=== PATIENT | female | born 1960 | race Caucasian/White ===

== ENCOUNTER → 2016-12-23 | Outpatient (CLI) | payer OTHER ==
[~2016-12-23] MED LIST: AMLODIPINE10 MG PO; ASPIRIN81 M1 PO; ATENOLOL25 MG PO; AUGMENTIN 875-875 MG PO; DUONEB 3 MG/3 ML3 M1 INH; FLONASE ALLERG9.9 ML NAS; GLIPIZIDE10 M2 PO; LISINOPRIL40 MG PO; LOVASTATIN10 MG PO; METOPROLOL TART50 M1 PO; MUCINEX1200 M1 PO; OXYBUTYNIN5 MG PO; PERCOCET 325 MG1 TA2 PO
== END | disposition home or self-care (01) ==
LOC: MAMMO 13:06
DX: Z12.31 Encounter for screening mammogram for malignant neoplasm of breast (principal)

== ENCOUNTER → 2017-06-18 | Outpatient (CLI) | payer OTHER | END | disposition home or self-care (01) | LOC: LAB 15:20 | DX: N20.0 Calculus of kidney (principal); E66.9 Obesity, unspecified ==

== ENCOUNTER 2018-09-23 22:48 | Emergency (ER) | payer OTHER | END 2018-09-23 23:46 | disposition home or self-care (01) | LOC: ED 22:48 | DX: L98.8 Other specified disorders of the skin and subcutaneous tissue (principal); Z88.8 Allergy status to other drugs, medicaments and biological substances; Z79.2 Long term (current) use of antibiotics; Z79.899 Other long term (current) drug therapy; Z79.82 Long term (current) use of aspirin; Z79.84 Long term (current) use of oral hypoglycemic drugs; Z87.442 Personal history of urinary calculi ==

== ENCOUNTER 2019-04-13 22:32 | Emergency (ER) | payer OTHER ==
[~2019-04-13] VITALS: Ht 162.5 cm; Wt 136.1 kg
== END 2019-04-14 00:43 | disposition home or self-care (01) ==
LOC: ED 22:32
DX: S90.31XA Contusion of right foot, initial encounter (principal); Z88.8 Allergy status to other drugs, medicaments and biological substances; Z79.2 Long term (current) use of antibiotics; Z79.899 Other long term (current) drug therapy; Z79.82 Long term (current) use of aspirin; Z87.442 Personal history of urinary calculi; X58.XXXA Exposure to other specified factors, initial encounter; Y93.01 Activity, walking, marching and hiking; Y92.098 Other place in other non-institutional residence as the place of occurrence of the external cause; Y99.8 Other external cause status

== ENCOUNTER 2019-05-07 18:51 | Emergency (ER) | payer OTHER ==
[~2019-05-07] VITALS: Ht 165.1 cm; Wt 136.1 kg
[2019-05-07] MEDS ORDERED: PREDNISONE20 M1 PO (19:37)
== END 2019-05-07 19:51 | disposition home or self-care (01) ==
LOC: ED 18:51
DX: L30.9 Dermatitis, unspecified (principal); E11.9 Type 2 diabetes mellitus without complications; Z88.8 Allergy status to other drugs, medicaments and biological substances; Z79.82 Long term (current) use of aspirin; Z79.899 Other long term (current) drug therapy; Z87.442 Personal history of urinary calculi

== ENCOUNTER → 2019-08-23 | Outpatient (CLI) | payer OTHER ==
[~2019-08-23] MED LIST changes: +PREDNISONE20 M1 PO
== END | disposition home or self-care (01) ==
LOC: MAMMO 11:02
DX: Z12.31 Encounter for screening mammogram for malignant neoplasm of breast (principal)

== ENCOUNTER 2019-09-10 23:28 | Emergency (ER) | payer OTHER ==
[~2019-09-10] VITALS: Ht 162.5 cm; Wt 142.9 kg
[2019-09-10 23:52] LABS: BILIRUBIN NEGATIVE (NEGATIVE); BLOOD 2+ (NEGATIVE); CLARITY CLOUDY (CLEAR); COLOR YELLOW (YELLOW); GLUCOSE NEGATIVE (NEGATIVE); KETONE TRACE (NEGATIVE); LEUKO ESTERASE TRACE (NEGATIVE); NITRITE POSITIVE (NEGATIVE); PH 5.5 (5.0-9.0); SPECIFIC GRAVITY >= 1.030 (1.005-1.030); UROBILINOGEN 0.2 E.U./dl (0.2-1.0)
[2019-09-11 00:01] LABS: EPITHELIAL CELLS TNTC; RBC 16-20 rbc/hpf (0-2)
[2019-09-11 00:02] LABS: BACTERIA 1+
[2019-09-11] MEDS ORDERED: PYRIDIUM100 MG PO (00:05)
[2019-09-11] MEDS ORDERED: KEFLEX500 M1 PO (00:05)
== END 2019-09-11 00:19 | disposition home or self-care (01) ==
LOC: ED 23:28
PROVIDERS: Physician Assistant
DX: N39.0 Urinary tract infection, site not specified (principal); I10 Essential (primary) hypertension; E11.9 Type 2 diabetes mellitus without complications; E78.00 Pure hypercholesterolemia, unspecified; Z88.8 Allergy status to other drugs, medicaments and biological substances; Z79.899 Other long term (current) drug therapy; Z79.82 Long term (current) use of aspirin; Z87.442 Personal history of urinary calculi

== ENCOUNTER 2019-09-23 01:54 | Emergency (ER) | payer OTHER ==
[~2019-09-23] VITALS: Ht 165.1 cm
[~2019-09-23 01:54] MED LIST changes: +KEFLEX500 M1 PO; +PYRIDIUM100 MG PO
[2019-09-23] MEDS ORDERED: PROVENTIL HFA6.7 GM INH (03:02)
== END 2019-09-23 03:20 | disposition home or self-care (01) ==
LOC: ED 01:54
DX: J40 Bronchitis, not specified as acute or chronic (principal); J06.9 Acute upper respiratory infection, unspecified; H92.03 Otalgia, bilateral; I10 Essential (primary) hypertension; E11.9 Type 2 diabetes mellitus without complications; E78.00 Pure hypercholesterolemia, unspecified; Z88.8 Allergy status to other drugs, medicaments and biological substances; Z79.2 Long term (current) use of antibiotics; Z79.899 Other long term (current) drug therapy; Z79.82 Long term (current) use of aspirin

== ENCOUNTER → 2021-03-28 | Outpatient (CLI) | payer OTHER ==
[~2021-03-28] MED LIST changes: +PROVENTIL HFA6.7 GM INH
== END | disposition home or self-care (01) ==
LOC: MAMMO 03-27 08:16
PROVIDERS: ATTEND Internal Medicine
DX: Z12.31 Encounter for screening mammogram for malignant neoplasm of breast (principal)

== ENCOUNTER → 2023-04-03 | Outpatient (CLI) | payer OTHER | END | disposition home or self-care (01) | LOC: MAMMO 09:07 | PROVIDERS: ATTEND Internal Medicine | DX: Z12.31 Encounter for screening mammogram for malignant neoplasm of breast (principal); N64.89 Other specified disorders of breast ==

== ENCOUNTER → 2024-08-18 | Outpatient (CLI) | payer OTHER | END | disposition home or self-care (01) | LOC: MAMMO 08:09 | PROVIDERS: ATTEND Nurse Practitioner Family | DX: Z12.31 Encounter for screening mammogram for malignant neoplasm of breast (principal) ==